=== PATIENT | male | born 1985 | race Caucasian/White ===

== ENCOUNTER 2020-06-01 15:21 | Emergency (ER) | payer OTHER ==
[2020-06-01 15:48] VITALS: PULSE 89; RESP 18; TEMP 98.3
--- NOTE | 2020-06-01 18:03 | US ---
EXAMINATION TYPE: US venous doppler duplex LE RT DATE OF EXAM: 06/01/2020 5:32 PM COMPARISON: NONE CLINICAL HISTORY: pain, swelling. 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 SIDE PERFORMED: Right TECHNIQUE: The lower extremity deep venous system is examined utilizing real time linear array sonog jose with graded compression, doppler sonography and color-flow sonography. VESSELS IMAGED: Common Femoral Vein Deep Femoral Vein Greater Saphenous Vein * (GSV) Femoral Vein Popliteal Vein Small Saphenous Vein * Proximal Calf Veins (* superficial vessels) Right Leg: Is positive for non occluding DVT in Right femoral profunda Vein, Right Popliteal Vein, a nd Right upper calf veins; is Positive for Occluding Superficial Vein Thrombosis entire Right GSV and Right Small Saphenous Vein. Lymph node is noted right groin, likely reactive. IMPRESSION: Nonocclusive DVT in the right femoral profunda, popliteal vein and proximal calf veins. Thrombophlebitis of the right greater and lesser saphenous veins. Findings were reported to Dr. Grover by me at the time of dictation.
--- NOTE | 2020-06-01 18:13 | ED ---
Extremity Problem HPI - General Chief complaint: Extremity Problem,Nontraumatic Stated complaint: R leg Swelling Time Seen by Provider: 06/01/20 16:33 Source: patient Mode of arrival: ambulatory Limitations: no limitations - History of Present Illness Initial comments: Patient is a 35-year-old male, with history of factor V Leiden, presenting to the emergency Department with complaints of some pain and swelling in his right lower extremity. Patient states he did not take his eliquis for about 2 weeks because he ran out, he has been back on the medication for the last 2 days. Patient is currently at [facility] for alcohol abuse. He has been alcohol free for 5 days. Patient denies any injuries or trauma to his right lower leg. He states he has had DVTs in the past. He denies any chest pain, shortness of breath, cough. He denies any fever or chills. He has no further complaints at this time. Upon arrival to the ER, his vital signs are stable. - Related Data Allergies Allergy/AdvReac Type Severity Reaction Status Date / Time No Known Allergies Allergy Verified 06/01/20 15:49 Review of Systems ROS Statement: Those systems with pertinent positive or pertinent negative responses have been documented in the HPI. ROS Other: All systems not noted in ROS Statement are negative. Past Medical History Additional Past Medical History / Comment(s): clotting disorder History of Any Multi-Drug Resistant Organisms: None Reported Smoking Status: Former smoker Past Alcohol Use History: Abuse, Daily Past Drug Use History: None Reported General Exam - General Exam Comments Initial Comments: GENERAL: Patient is well-developed and well-nourished. Patient is nontoxic and in no acute distress. HEAD: Atraumatic, normocephalic. EYES: Pupils equal round and reactive to light, extraocular movements intact, sclera anicteric, conjunctiva are normal. Eyelids were unremarkable. ENT: TMs normal, nares patent, oropharynx clear without exudates. Moist mucous membranes. NECK: Normal range of motion, supple without lymphadenopathy or JVD. LUNGS: Unlabored respirations. Breath sounds clear to auscultation bilaterally and equal. No wheezes rales or rhonchi. HEART: Regular rate and rhythm without murmurs, rubs or gallops. ABDOMEN: Soft, nontender, normoactive bowel sounds. No guarding, no rebound. No masses appreciated. : Deferred MUSCULOSKELETAL: Mild pain with palpation of the distal right lower leg. No significant swelling, bruising, signs of infection. Patient is neurovascular intact in bilateral lower extremities. Normal extremities with adequate strength and normal range of motion, no pitting or edema. No clubbing or cyanosis. NEUROLOGICAL: Patient is alert and oriented x 3. Motor and sensory are also intact. Cranial nerves II through XII grossly intact. Symmetrical smile. Normal speech, normal gait. PSYCH: Normal mood, normal affect. SKIN: Warm, Dry, normal turgor, no rashes or lesions noted. Limitations: no limitations Course Vital Signs 06/01/20 06/01/20 06/01/20 15:45 16:40 17:00 Temperature 98.3 F Pulse Rate 89 Respiratory 18 Rate Blood Pressure 139/87 111/96 137/92 O2 Sat by Pulse 97 99 98 Oximetry 06/01/20 06/01/20 06/01/20 17:30 18:00 18:30 Temperature Pulse Rate Respiratory Rate Blood Pressure 125/83 136/92 134/96 O2 Sat by Pulse 99 100 99 Oximetry Medical Decision Making - Medical Decision Making Patient is a 35-year-old male here from [facility] for the pain and swelling of his right lower extremity. Does have history of factor V Leiden, he didn't take his eliquis for 2 weeks, back on it for 2 days. Pulses are normal, very mild swelling noted. US of the right lower extremity is positive for nonoccluding DVT in the right femoral, right popliteal and right upper calf. We did discuss case with Dr. Grider who states that patient is safe to go home, important that he continues with his eliquis daily, wear compression stockings and strict return parameters such as chest pain, shortness of breath, significant amount of right leg swelling and pain. Patient is stable for discharge. Strict return parameters were discussed with the patient and he ve rbalized understanding. Case discussed with Dr. Verduzco. Disposition Clinical Impression: Deep vein thrombosis (DVT) of right lower extremity Disposition: HOME SELF-CARE Condition: Stable Instructions (If sedation given, give patient instructions): Deep Vein Thrombosis (ED) Additional Instructions: Please return to the Emergency Department if symptoms worsen or any other concerns. Very important to take Eliquis daily, recommended compression stockings. Follow-up with PCP. Is patient prescribed a controlled substance at d/c from ED?: No Referrals: Nonstaff,Physician [Primary Care Provider] - 1-2 days
[2020-06-01] MEDS ORDERED: KETOROLAC 15 MG/ML 1 ML VIAL IM STA (18:34)
[2020-06-01 19:08] VITALS: BP 134/96
== END 2020-06-01 19:10 | disposition home or self-care (01) ==
LOC: EC 15:21
DX: I82.411 Acute embolism and thrombosis of right femoral vein (principal); I82.431 Acute embolism and thrombosis of right popliteal vein; I82.4Z1 Acute embolism and thrombosis of unspecified deep veins of right distal lower extremity; Z79.01 Long term (current) use of anticoagulants; Z87.891 Personal history of nicotine dependence; Z86.2 Personal history of diseases of the blood and blood-forming organs and certain disorders involving the immune mechanism; Z91.14 Patient's other noncompliance with medication regimen
CPT/HCPCS: 93971; 99283; J1885

== ENCOUNTER 2021-05-15 17:22 | Emergency (ER) | payer OTHER ==
[2021-05-15] MEDS ORDERED: ACETAMINOPHEN TAB 500 MG TAB PO STA (18:45)
--- NOTE | 2021-05-15 18:48 | ED ---
General Adult HPI - General Chief complaint: Shortness of Breath Stated complaint: DVT Time Seen by Provider: 05/15/21 18:35 Source: patient, RN notes reviewed Mode of arrival: ambulatory Limitations: no limitations - History of Present Illness Initial comments: Patient is a pleasant 36-year-old male presenting to the emergency department with concern for thoughts. Patient does have history of factor V and has been off his Eliquis for probably a month. Patient feels he has a superficial thrombosis right arm that is mild and somewhat improved. Patient can feel it with his fingers. Patient also has some discomfort of his right thigh is concern for possible DVT there. Patient states he has had some mild dyspnea. No fevers. - Related Data Allergies Allergy/AdvReac Type Severity Reaction Status Date / Time No Known Allergies Allergy Verified 05/15/21 18:02 Review of Systems ROS Statement: Those systems with pertinent positive or pertinent negative responses have been documented in the HPI. ROS Other: All systems not noted in ROS Statement are negative. Constitutional: Denies: fever Eyes: Denies: eye pain ENT: Denies: ear pain Respiratory: Reports: as per HPI. Denies: cough Cardiovascular: Denies: palpitations Endocrine: Denies: fatigue Gastrointestinal: Denies: abdominal pain Genitourinary: Denies: dysuria Musculoskeletal: Reports: as per HPI. Denies: back pain Skin: Denies: rash Neurological: Denies: weakness Past Medical History Past Medical History: No Reported History Additional Past Medical History / Comment(s): clotting disorder- factor 5. History of Any Multi-Drug Resistant Organisms: None Reported Past Surgical History: Orthopedic Surgery Past Psychological History: Anxiety, Depression Smoking Status: Current every day smoker Past Alcohol Use History: Abuse, Daily Past Drug Use History: None Reported General Exam Limitations: no limitations General appearance: alert, in no apparent distress Head exam: Present: normocephalic Eye exam: Present: normal appearance Neck exam: Present: normal inspection Respiratory exam: Present: normal lung sounds bilaterally Cardiovascular Exam: Present: regular rate, normal rhythm Expanded Peripheral pulses: 2+: Radial (R), Radial (L), Posterior Tibialis (R), Posterior Tibialis (L) GI/Abdominal exam: Present: soft. Absent: tenderness Extremities exam: Present: other (Mild tenderness right inner thigh. Right forearm with mild tenderness. Mild palpable cord and minimal swelling.) Neurological exam: Present: alert Psychiatric exam: Present: normal affect, normal mood Skin exam: Present: normal color Course Vital Signs 05/15/21 05/15/21 05/15/21 18:02 19:24 19:48 Temperature 97.9 F Pulse Rate 110 H 100 Respiratory 20 18 18 Rate Blood Pressure 144/78 O2 Sat by Pulse 99 Oximetry 05/15/21 20:01 Temperature Pulse Rate 98 Respiratory 18 Rate Blood Pressure 134/93 O2 Sat by Pulse 98 Oximetry EKG Findings - EKG Comments: EKG Findings:: Sinus tachycardia 102. NH 126. QRS 102. QT 340. QTc 443. Normal axis. Normal QRS. No acute ST change. Medical Decision Making - Medical Decision Making Patient reevaluated and resting complain bed. Patient updated on results and plan. 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 Patient will be provided dose for now and in the morning prior to that. - Lab Data Result diagrams: 05/15/21 19:11 05/15/21 19:11 Lab Results 05/15/21 05/15/21 05/15/21 Range/Units 19:11 19:11 19:11 WBC 7.4 (3.8-10.6) k/uL RBC 4.75 (4.30-5.90) m/uL Hgb 14.7 (13.0-17.5) gm/dL Hct 44.7 (39.0-53.0) % MCV 94.2 (80.0-100.0) fL MCH 30.9 (25.0-35.0) pg MCHC 32.8 (31.0-37.0) g/dL RDW 13.2 (11.5-15.5) % Plt Count 164 (150-450) k/uL MPV 7.3 Neutrophils % 65 % Lymphocytes % 23 % Monocytes % 7 % Eosinophils % 3 % Basophils % 1 % Neutrophils # 4.8 (1.3-7.7) k/uL Lymphocytes # 1.7 (1.0-4.8) k/uL Monocytes # 0.5 (0-1.0) k/uL Eosinophils # 0.2 (0-0.7) k/uL Basophils # 0.0 (0-0.2) k/uL PT 10.1 (9.0-12.0) sec INR 0.9 (<1.2) APTT 22.7 (22.0-30.0) sec Sodium 135 L (137-145) mmol/L Potassium 4.0 (3.5-5.1) mmol/L Chloride 103 (98-107) mmol/L Carbon Dioxide 24 (22-30) mmol/L Anion Gap 8 mmol/L BUN 17 (9-20) mg/dL Creatinine 0.92 (0.66-1.25) mg/dL Est GFR (CKD-EPI)AfAm >90 (>60 ml/min/1.73 sqM) Est GFR (CKD-EPI)NonAf >90 (>60 ml/min/1.73 sqM) Glucose 120 H (74-99) mg/dL Plasma Lactic Acid New (0.7-2.0) mmol/L Calcium 9.3 (8.4-10.2) mg/dL Total Bilirubin 0.3 (0.2-1.3) mg/dL AST 51 (17-59) U/L ALT 72 H (4-49) U/L Alkaline Phosphatase 55 (38-126) U/L Troponin I (0.000-0.034) ng/mL Total Protein 6.6 (6.3-8.2) g/dL Albumin 4.1 (3.5-5.0) g/dL 05/15/21 05/15/21 Range/Units 19:11 19:11 WBC (3.8-10.6) k/uL RBC (4.30-5.90) m/uL Hgb (13.0-17.5) gm/dL Hct (39.0-53.0) % MCV (80.0-100.0) fL MCH (25.0-35.0) pg MCHC (31.0-37.0) g/dL RDW (11.5-15.5) % Plt Count (150-450) k/uL MPV Neutrophils % % Lymphocytes % % Monocytes % % Eosinophils % % Basophils % % Neutrophils # (1.3-7.7) k/uL Lymphocytes # (1.0-4.8) k/uL Monocytes # (0-1.0) k/uL Eosinophils # (0-0.7) k/uL Basophils # (0-0.2) k/uL PT (9.0-12.0) sec INR (<1.2) APTT (22.0-30.0) sec Sodium (137-145) mmol/L Potassium (3.5-5.1) mmol/L Chloride (98-107) mmol/L Carbon Dioxide (22-30) mmol/L Anion Gap mmol/L BUN (9-20) mg/dL Creatinine (0.66-1.25) mg/dL Est GFR (CKD-EPI)AfAm (>60 ml/min/1.73 sqM) Est GFR (CKD-EPI)NonAf (>60 ml/min/1.73 sqM) Glucose (74-99) mg/dL Plasma Lactic Acid New 1.3 (0.7-2.0) mmol/L Calcium (8.4-10.2) mg/dL Total Bilirubin (0.2-1.3) mg/dL AST (17-59) U/L ALT (4-49) U/L Alkaline Phosphatase (38-126) U/L Troponin I <0.012 (0.000-0.034) ng/mL Total Protein (6.3-8.2) g/dL Albumin (3.5-5.0) g/dL - Radiology Data Radiology results: report reviewed (Computed tomography scan of the chest shows no evidence of pulmonary embolism. 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 Extra doses being provided for U. Please do follow-up with primary care physician in the next day or 2 for recheck. Return for difficulty in breathing, chest pain, extremity pain or swelling, worsening symptoms or other concerns. Is patient prescribed a controlled substance at d/c from ED?: No Referrals: Dk Shook MD [STAFF PHYSICIAN] - 1-2 days Time of Disposition: 20:25
[2021-05-15 19:27] VITALS: RESP 18
[2021-05-15 19:29] LABS: Basophils % (A) 1 %; Eosinophils # (A) 0.2 k/uL (0-0.7); Eosinophils % (A) 3 %; HCT 44.7 % (39.0-53.0); HGB 14.7 gm/dL (13.0-17.5); Lymphocytes # (A) 1.7 k/uL (1.0-4.8); Lymphocytes % (A) 23 %; MCH 30.9 pg (25.0-35.0); MCHC 32.8 g/dL (31.0-37.0); MCV 94.2 fL (80.0-100.0); Mean Platelet Volume 7.3; Monocytes # (A) 0.5 k/uL (0-1.0); Monocytes % (A) 7 %; Neutrophils # (A) 4.8 k/uL (1.3-7.7); Neutrophils % (A) 65 %; Platelet Count 164 k/uL (150-450); RBC 4.75 m/uL (4.30-5.90); RDW 13.2 % (11.5-15.5); WBC 7.4 k/uL (3.8-10.6)
--- NOTE | 2021-05-15 19:32 | CT ---
EXAMINATION TYPE: CT angio chest DATE OF EXAM: 05/15/2021 COMPARISON: None HISTORY: chest pain, SOB. hx of PE. CT DLP: 493.3 mGycm Automated exposure control for dose reduction was used. CONTRAST: Performed with IV Contrast, patient injected with 100 mL of Isovue 370. There are 3-D post processed images. The lungs are clear of infiltrate. There is no pleural effusion. There is no evidence of a pulmonary mass. Heart size is normal. There is no pericardial effusion. There are no hilar masses. There is no mediastinal adenopathy. Thoracic aorta is intact. There is no aneurysm or dissection. There is no evidence of filling defect in the pulmonary arteries. There is martin boptimal contrast density in the smaller branches of the pulmonary arteries. Thoracic spine is intact. Sternum is intact. Upper abdominal soft tissues are intact. IMPRESSION: No evidence of pulmonary embolism. Suboptimal exam.
[2021-05-15] MEDS ORDERED: MORPHINE SULFATE 4 MG/ML SYRINGE IVP STA (19:42)
[2021-05-15 19:51] LABS: INR 0.9 (<1.2); Partial Thromboplastin Time 22.7 sec (22.0-30.0); Prothrombin Time 10.1 sec (9.0-12.0)
[2021-05-15 19:56] LABS: ALT 72 U/L (4-49); AST 51 U/L (17-59); African American GFR (CKD) >90 (>60 ml/min/1.73 sqM); Albumin 4.1 g/dL (3.5-5.0); Alkaline Phosphatase 55 U/L (38-126); Anion Gap 8 mmol/L; Blood Urea Nitrogen 17 mg/dL (9-20); Calcium 9.3 mg/dL (8.4-10.2); Carbon Dioxide 24 mmol/L (22-30); Chloride 103 mmol/L (98-107); Glucose 120 mg/dL (74-99); Non-African American GFR(CKD) >90 (>60 ml/min/1.73 sqM); Sodium 135 mmol/L (137-145); Total Bilirubin 0.3 mg/dL (0.2-1.3); Total Protein 6.6 g/dL (6.3-8.2)
--- NOTE | 2021-05-15 20:11 | US ---
EXAMINATION TYPE: US venous doppler duplex UE RT DATE OF EXAM: 05/15/2021 COMPARISON: NONE CLINICAL HISTORY: pain. Pain medial right arm SIDE PERFORMED: Right Right Arm: Negative for DVT, +SVT visualized within right basilic 3.6 cm away from brachial junction IMPRESSION: No deep vein thrombosis. There is limited superficial vein thrombosis in the basilic vein.
--- NOTE | 2021-05-15 20:12 | US ---
EXAMINATION TYPE: US venous doppler duplex LE RT DATE OF EXAM: 05/15/2021 8:01 PM COMPARISON: US CLINICAL HISTORY: pain. Pain right leg SIDE PERFORMED: Right TECHNIQUE: The lower extremity deep venous system is examined utilizing real time linear array sonog jose with graded compression, doppler sonography and color-flow sonography. VESSELS IMAGED: Common Femoral Vein Deep Femoral Vein Greater Saphenous Vein * Femoral Vein Popliteal Vein Small Saphenous Vein * Proximal Calf Veins (* superficial vessels) Right Leg: Negative for acute DVT, non-occluding chronic thrombus from distal femoral vein to distal popliteal vein IMPRESSION: There is chronic deep vein thrombosis in the right leg.
[2021-05-15] MEDS ORDERED: APIXABAN 5 MG TAB PO STA ×2 (20:23→20:26)
[2021-05-15 20:37] VITALS: BP 130/76; PULSE 81; TEMP 98.3
== END 2021-05-15 20:37 | disposition home or self-care (01) ==
LOC: EC 17:22
DX: I82.721 Chronic embolism and thrombosis of deep veins of right upper extremity (principal); F41.9 Anxiety disorder, unspecified; F32.9 Major depressive disorder, single episode, unspecified; F17.200 Nicotine dependence, unspecified, uncomplicated
CPT/HCPCS: 99285; 96374; 36415; 93005; 80053; 83605; 84484; 85025; 85610; 85730; 93971 ×2; 71275; J2270; Q9967